=== PATIENT | male | born 1990 | race Caucasian/White ===

== ENCOUNTER 2016-11-04 18:34 | Emergency (ER) | payer OTHER ==
[~2016-11-04] VITALS: Ht 180.3 cm; Wt 83.9 kg
[2016-11-04 18:38] VITALS: BP 148/75
[2016-11-04] MEDS ORDERED: LIDOCAINE 1%, 20ML ONE (19:37)
== END 2016-11-04 19:36 | disposition home or self-care (01) ==
LOC: ED 18:55
DX: L73.9 Follicular disorder, unspecified (principal)
CPT/HCPCS: 99283